=== PATIENT | female | born 1965 | race African-American/Black ===

== ENCOUNTER 2020-07-24 11:57 | Emergency (ER) | payer OTHER ==
[~2020-07-24] VITALS: Ht 160 cm; Wt 100.0 kg
[2020-07-24] MEDS ORDERED: ACETAMINOPHEN 325MG TABLET PO STA (12:40)
[2020-07-24] MEDS ORDERED: MAGNESIUM/ALUMINUM HYDROXIDE/SIMETHICONE 30ML UDC PO ONE (14:00)
[2020-07-24 14:55] LABS: BASOPHILS % 0.9 % (0.0-2.0); EOSINOPHILS % 0.6 % (0.0-5.0); HEMATOCRIT. 42.9 % (36.0-48.0); HEMOGLOBIN. 14.8 g/dL (12.0-16.0); LYMPHOCYTES % 40.2 % (20.0-50.0); MEAN CORPUSCULAR HEMOGLOBIN 32.3 pg (28.0-32.0); MEAN CORPUSCULAR VOLUME 93.7 fL (81.0-99.0); MEAN PLATELET VOLUME 9.2 fl (7.4-10.4); MONOCYTES % 7.6 % (2.0-8.0); NEUTROPHILS % 50.7 % (40.0-76.0); PLATELET 287 x1000/uL (130-400); RED BLOOD CELL COUNT 4.58 mill/uL (4.2-5.4); RED CELL DISTRIBUTION WIDTH 13.6 % (11.6-14.6)
[2020-07-24 15:02] LABS: CHLORIDE 107 mEq/L (98-107)
[2020-07-24 15:12] LABS: HCG SCREEN NEGATIVE
[2020-07-24 17:27] VITALS: BP 150/90
== END 2020-07-24 17:28 | disposition home or self-care (01) ==
LOC: ER 11:57
DX: R10.10 Upper abdominal pain, unspecified (principal); F32.9 Major depressive disorder, single episode, unspecified
CPT/HCPCS: 36415; 71045; 74176; 76705; 80048; 80076; 84484; 84703; 85025; 85379; 93005; 99285

== ENCOUNTER 2021-02-03 12:05 | Emergency (ER) | payer OTHER ==
[~2021-02-03] VITALS: Ht 160 cm; Wt 94.6 kg
[2021-02-03] MEDS ORDERED: KETOROLAC 30MG/ML VIAL IV STA (12:36)
[2021-02-03] MEDS ORDERED: SODIUM CHLORIDE 0.9% 1,000 ML IV ONE (12:45)
[2021-02-03 13:15] LABS: BASOPHILS % 0.7 % (0.0-2.0); EOSINOPHILS % 0.4 % (0.0-5.0); HEMATOCRIT. 44.3 % (36.0-48.0); LYMPHOCYTES % 20.2 % (20.0-50.0); MEAN CORPUSCULAR HEMOGLOBIN 33.7 pg (28.0-32.0); MEAN CORPUSCULAR VOLUME 93.1 fL (81.0-99.0); MEAN PLATELET VOLUME 8.2 fl (7.4-10.4); MONOCYTES % 10.7 % (2.0-8.0); PLATELET 262 x1000/uL (130-400); RED BLOOD CELL COUNT 4.76 mill/uL (4.2-5.4); RED CELL DISTRIBUTION WIDTH 13.7 % (11.6-14.6)
[2021-02-03 13:20] LABS: CHLORIDE 98 mEq/L (98-107)
[2021-02-03 13:45] LABS: CLARITY URINE CLEAR (CLEAR); COLOR URINE YELLOW (YELLOW); KETONES URINE NEGATIVE (NEGATIVE); LEUKOCYTE ESTERASE URINE NEGATIVE (NEGATIVE); NITRITE URINE NEGATIVE (NEGATIVE); OCCULT BLOOD URINE NEGATIVE (NEGATIVE); PH URINE 5.5 (4.5-8.0); PROTEIN URINE NEGATIVE (NEGATIVE); SPECIFIC GRAVITY URINE 1.043 (1.005-1.030)
[2021-02-03] MEDS ORDERED: IBUPROFEN 600MG TABLET PO ONE (14:15)
[2021-02-03] MEDS ORDERED: IBUP-2028 MT (15:00)
[2021-02-03] MEDS ORDERED: NITR-87 MT (15:01)
[2021-02-03 15:30] VITALS: BP 128/72
== END 2021-02-03 15:45 | disposition home or self-care (01) ==
LOC: ER 12:05
DX: R53.1 Weakness (principal); R51.9 Headache, unspecified; N39.0 Urinary tract infection, site not specified; F12.10 Cannabis abuse, uncomplicated; I10 Essential (primary) hypertension; E78.00 Pure hypercholesterolemia, unspecified; E11.9 Type 2 diabetes mellitus without complications
CPT/HCPCS: 36415; 80053; 81003; 82962; 85025; 93005; 99284; J7030; Z7610

== ENCOUNTER 2021-11-23 10:50 | Emergency (ER) | payer MEDICAID, OTHER ==
[~2021-11-23] VITALS: Ht 160 cm; Wt 94.0 kg
[~2021-11-23 10:50] MED LIST: IBUP-2028 MT; NITR-87 MT
[2021-11-23] MEDS ORDERED: MORPHINE SULFATE 4 MG/ML CPJ (NOT FOR IM USE) IV STA (11:07)
[2021-11-23] MEDS ORDERED: ONDANSETRON HCL 4MG/2ML INJ IV STA (11:07)
[2021-11-23] MEDS ORDERED: SODIUM CHLORIDE 0.9% 1,000 ML IV ONE (11:15)
[2021-11-23 11:55] LABS: BASOPHILS % 0.9 % (0.0-2.0); EOSINOPHILS % 1.1 % (0.0-5.0); HEMATOCRIT. 49.3 % (36.0-48.0); MEAN CORPUSCULAR HEMOGLOBIN 32.3 pg (28.0-32.0); MEAN CORPUSCULAR VOLUME 93.6 fL (81.0-99.0); MEAN PLATELET VOLUME 9.2 fl (7.4-10.4); MONOCYTES % 6.3 % (2.0-8.0); NEUTROPHILS % 57.7 % (40.0-76.0); PLATELET 253 x1000/uL (130-400); RED BLOOD CELL COUNT 5.27 mill/uL (4.2-5.4); RED CELL DISTRIBUTION WIDTH 13.7 % (11.6-14.6)
[2021-11-23 11:59] LABS: CHLORIDE 105 mEq/L (98-107)
[2021-11-23] MEDS ORDERED: KETOROLAC 30MG/ML VIAL IV ONE (15:00)
[2021-11-23 15:24] LABS: CLARITY URINE CLOUDY (CLEAR); COLOR URINE YELLOW (YELLOW); KETONES URINE 1+ (NEGATIVE); LEUKOCYTE ESTERASE URINE NEGATIVE (NEGATIVE); NITRITE URINE NEGATIVE (NEGATIVE); OCCULT BLOOD URINE 1+ (NEGATIVE); PROTEIN URINE NEGATIVE (NEGATIVE); SPECIFIC GRAVITY URINE 1.043 (1.005-1.030); UROBILINOGEN URINE 0.2 E.U./dL (0.2-1.0)
[2021-11-23] MEDS ORDERED: OMEP20CA14 MT (16:22)
[2021-11-23] MEDS ORDERED: DIF15 MT (16:22)
[2021-11-23] MEDS ORDERED: DICY20TA11 MT (16:22)
[2021-11-23] MEDS ORDERED: MORPHINE SULFATE 4 MG/ML CPJ (NOT FOR IM USE) IV SCH (16:45)
[2021-11-23] MEDS ORDERED: ONDANSETRON HCL 4MG/2ML INJ IV SCH (16:45)
[2021-11-23] MEDS ORDERED: KETOROLAC 30MG/ML VIAL IV SCH (16:45)
[2021-11-23 17:47] VITALS: BP 142/69
== END 2021-11-23 18:02 | disposition home or self-care (01) ==
LOC: ER 10:50
DX: R10.13 Epigastric pain (principal); E11.9 Type 2 diabetes mellitus without complications; I10 Essential (primary) hypertension; F32.A Depression, unspecified; E78.00 Pure hypercholesterolemia, unspecified; F12.10 Cannabis abuse, uncomplicated
CPT/HCPCS: 36415; 71045; 74176; 80053; 81003; 83690; 85025; 93005; 96361; 96374; 96375; 99285; J1885; J2405; J7030; J2270

== ENCOUNTER 2022-11-25 23:34 | Inpatient (IN) | payer BC, OTHER ==
[~2022-11-25] VITALS: Ht 160 cm; Wt 99.8 kg
[~2022-11-25 23:34] MED LIST changes: +DICY20TA2 MT; +DIF15 MT; +OMEP20CA14 MT
[2022-11-26 00:29] LABS: BASOPHILS % 0.6 % (0.0-2.0); EOSINOPHILS % 0.6 % (0.0-5.0); HEMATOCRIT. 47.8 % (36.0-48.0); HEMOGLOBIN. 15.7 g/dL (12.0-16.0); LYMPHOCYTES % 30.3 % (20.0-50.0); MEAN CORPUSCULAR HEMOGLOBIN 31.7 pg (28.0-32.0); MEAN CORPUSCULAR VOLUME 96.5 fL (81.0-99.0); MEAN PLATELET VOLUME 10.4 fl (7.4-10.4); MONOCYTES % 7.8 % (2.0-8.0); NEUTROPHILS % 60.7 % (40.0-76.0); PLATELET 288 x1000/uL (130-400); RED BLOOD CELL COUNT 4.96 mill/uL (4.2-5.4); RED CELL DISTRIBUTION WIDTH 13.8 % (11.6-14.6)
[2022-11-26 00:32] LABS: CHLORIDE 92 mEq/L (98-107)
[2022-11-26] MEDS ORDERED: INSULIN REGULAR (HUMULIN R) 300UNITS/3ML VIAL IV ONE (01:15)
[2022-11-26] MEDS ORDERED: SODIUM CHLORIDE 0.9% 1,000 ML IV ONE (01:15)
[2022-11-26 02:08] LABS: CLARITY URINE CLEAR (CLEAR); COLOR URINE YELLOW (YELLOW); KETONES URINE NEGATIVE (NEGATIVE); LEUKOCYTE ESTERASE URINE NEGATIVE (NEGATIVE); NITRITE URINE NEGATIVE (NEGATIVE); OCCULT BLOOD URINE NEGATIVE (NEGATIVE); PROTEIN URINE NEGATIVE (NEGATIVE); SPECIFIC GRAVITY URINE 1.037 (1.005-1.030); UROBILINOGEN URINE 0.2 E.U./dL (0.2-1.0)
[2022-11-26] MEDS ORDERED: INSULIN REGULAR (HUMULIN R) 300UNITS/3ML VIAL IV NR (06:30)
[2022-11-26 08:00] VITALS: BP 110/65
[2022-11-26] MEDS ORDERED: DEXTROSE 50% WATER 50ML SYRINGE IV PRN (10:45)
[2022-11-26] MEDS: SODIUM CHLORIDE 0.9% 1,000 ML IV SCH (10:45)
[2022-11-26] MEDS ORDERED: ACETAMINOPHEN 325MG TABLET PO PRN (10:45)
[2022-11-26] MEDS ORDERED: ONDANSETRON HCL 4MG/2ML INJ IV PRN (10:45)
[2022-11-26 11:27] VITALS: BP 110/65
[2022-11-26 12:00] VITALS: BP 100/61
[2022-11-26] MEDS: BLOOD SUGAR DIAGNOSTIC STRIP TEST SCH ×3 (13:16→20:53)
[2022-11-26] MEDS: INSULIN LISPRO 100 UNITS/ML SUBCUT SCH ×3 (13:19→20:48)
[2022-11-26 16:00] VITALS: BP 100/68
[2022-11-26 20:00] VITALS: BP 93/46
[2022-11-26] MEDS ORDERED: INSULIN GLARGINE 100 UNITS/ML SUBCUT SCH (22:00)
[2022-11-26] MEDS: INSULIN GLARGINE 100 UNITS/ML SUBCUT SCH (22:39)
[2022-11-27] VITALS: BP 95/56
[2022-11-27] MEDS: SODIUM CHLORIDE 0.9% 1,000 ML IV SCH (01:51)
[2022-11-27 04:00] VITALS: BP 102/58
[2022-11-27] MEDS: BLOOD SUGAR DIAGNOSTIC STRIP TEST SCH ×2 (06:52→12:56)
[2022-11-27 08:00] VITALS: BP 106/61
[2022-11-27] MEDS ORDERED: INSU100I28 SQ (08:08)
[2022-11-27] MEDS: INSULIN LISPRO 100 UNITS/ML SUBCUT SCH ×2 (08:44→12:56)
[2022-11-27] MEDS: INSULIN GLARGINE 100 UNITS/ML SUBCUT SCH (10:59)
[2022-11-27 12:00] VITALS: BP 112/67
[2022-11-27 13:34] VITALS: BP 112/67
[2022-11-27 15:20] LABS: *AMPHETAMINES SCREEN URINE NEGATIVE (NEGATIVE); *BARBITURATES SCREEN URINE NEGATIVE (NEGATIVE); *BENZODIAZEPINES SCREEN URINE NEGATIVE (NEGATIVE); *COCAINE SCREEN URINE NEGATIVE (NEGATIVE); CANNABINOID URINE SCREEN NEGATIVE (NEGATIVE); METHADONE URINE SCREEN NEGATIVE (NEGATIVE); OPIATES URINE SCREEN NEGATIVE (NEGATIVE); PHENCYCLIDINE URINE SCREEN NEGATIVE (NEGATIVE)
== END 2022-11-27 15:41 | disposition home or self-care (01) | DRG 638 ==
LOC: ER 23:34 → MICUSO 11-26 01:44 → 6EST 11-26 08:40
PROVIDERS: ADMIT Internal Medicine; ATTEND Internal Medicine
DX: E11.65 Type 2 diabetes mellitus with hyperglycemia (principal); E87.1 Hypo-osmolality and hyponatremia; E66.9 Obesity, unspecified; E86.0 Dehydration; E78.00 Pure hypercholesterolemia, unspecified; F31.9 Bipolar disorder, unspecified; I10 Essential (primary) hypertension; Z68.39 Body mass index [BMI] 39.0-39.9, adult; Z91.199 Patient's noncompliance with other medical treatment and regimen due to unspecified reason
CPT/HCPCS: 36415; 80053; 80305; 81003; 82010; 82962; 83036; 85025; 93005; 99285; J1815; J7030

== ENCOUNTER 2025-04-01 07:48 | Emergency (ER) | payer BC, MEDICAID ==
[~2025-04-01] VITALS: Ht 160 cm; Wt 95.0 kg
[~2025-04-01 07:48] MED LIST changes: -DICY20TA2 MT; -DIF15 MT; +INSU100I28 SQ; -NITR-87 MT
[2025-04-01 07:51] VITALS: O2SAT 99
[2025-04-01 08:21] LABS: CLARITY URINE CLOUDY (CLEAR); COLOR URINE DARK YELLOW (YELLOW); GLUCOSE URINE NEGATIVE (NEGATIVE); KETONES URINE TRACE (NEGATIVE); LEUKOCYTE ESTERASE URINE NEGATIVE (NEGATIVE); NITRITE URINE NEGATIVE (NEGATIVE); OCCULT BLOOD URINE 2+ (NEGATIVE); PH URINE 5.5 (4.5-8.0); PROTEIN URINE TRACE (NEGATIVE); SPECIFIC GRAVITY URINE 1.028 (1.005-1.030); UROBILINOGEN URINE 1.0 E.U./dL (0.2-1.0)
[2025-04-01 08:32] LABS: BASOPHILS % 1.0 % (0.0-2.0); EOSINOPHILS % 0.9 % (0.0-5.0); HEMATOCRIT. 40.7 % (36.0-48.0); HEMOGLOBIN. 13.8 g/dL (12.0-16.0); LYMPHOCYTES % 35.6 % (20.0-50.0); MEAN PLATELET VOLUME 8.8 fl (7.4-10.4); MONOCYTES % 7.4 % (2.0-8.0); NEUTROPHILS % 55.1 % (40.0-76.0); PLATELET 352 x1000/uL (130-400); RED BLOOD CELL COUNT 4.46 mill/uL (4.2-5.4); RED CELL DISTRIBUTION WIDTH 13.0 % (11.6-14.6)
[2025-04-01 08:43] LABS: CREATININE 0.9 mg/dL (0.6-1.0)
[2025-04-01 08:44] LABS: TROPONIN I HIGH SENSITIVITY < 4 ng/L (3.0-34); UREA NITROGEN BLOOD 10 mg/dL (9-23)
[2025-04-01 08:45] LABS: ASPARTATE AMINOTRANSFERASE 12 IU/L (<34); INR 1.0
[2025-04-01 08:46] LABS: BILIRUBIN DIRECT 0.1 mg/dL (<=3.0); BILIRUBIN TOTAL 0.4 mg/dL (0.1-1.0); PROTEIN TOTAL 7.5 g/dL (6.0-8.3)
[2025-04-01 09:09] LABS: BACTERIA URINE 1+; SQUAMOUS EPITHELIAL CELL URINE 3+ /lpf (RARE/1+); WBC URINE 0-2 /hpf (0-2); YEAST URINE NONE SEEN
[2025-04-01] MEDS ORDERED: SULF1TAB48 MT (09:15)
[2025-04-01] MEDS ORDERED: METR-167 MT (09:15)
[2025-04-01] MEDS ORDERED: POLY17PO3 MT (09:15)
[2025-04-01] MEDS: POTASSIUM CHLORIDE 20MEQ TABLET SR PO NR (09:36)
[2025-04-01 09:40] VITALS: BP 128/87; PULSE 18; RESP 18; TEMP 36.8; O2SAT 99
== END 2025-04-01 09:43 | disposition home or self-care (01) ==
LOC: ER 07:49
DX: K57.32 Diverticulitis of large intestine without perforation or abscess without bleeding (principal); E11.9 Type 2 diabetes mellitus without complications; E78.00 Pure hypercholesterolemia, unspecified; I10 Essential (primary) hypertension; Z79.4 Long term (current) use of insulin; Z79.899 Other long term (current) drug therapy
CPT/HCPCS: 36415; 74176; 80048; 80076; 81003; 81025; 84484; 85025; 93005; 99284